=== PATIENT | male | born 1995 | race American Indian/Alaskan Native ===

== ENCOUNTER 2019-09-11 17:06 | Emergency (ER) | payer SELFPAY ==
[2019-09-11 19:36] VITALS: BP 109/49
--- NOTE | 2019-09-11 19:41 | Emergency Department Report ---
Chief Complaint: Urogenital-Male Stated Complaint: PAIN URINING Time Seen by Provider: 09/11/19 19:37 - HPI History of Present Illness: pt states that he has dysuria that began last night +penile discharge no pain or edema in the testicles no n/v/d no fever no abd pain PMhx asthma Vitals are stable Medical screening examination performed and there is no threat to life or limb at this time Patient needs to receive a full STD panel in treatment through the health department or another clinic Patient was given the appropriate resources advised pt to please be seen by the health department or a clinic for a full STD panel. do not engage in sexual activity until you have been tested and treated. please have any partner tested and treated as well. return to the emergency room for any new or worsening symptoms. - Exam Vital Signs: Vital Signs 09/11/19 17:57 Temperature 98.8 F Pulse Rate 55 L Respiratory 18 Rate Blood Pressure 109/49 O2 Sat by Pulse 100 Oximetry MSE screening note: Focused history and physical exam performed. ED Disposition for MSE Clinical Impression: Concern about STD in male without diagnosis Disposition: Z-07 MED SCREENING EXAM-LEFT Is pt being admited?: No Does the pt Need Aspirin: No Condition: Stable Instructions: Sexually Transmitted Diseases (ED), Safe Sex (ED) Additional Instructions: please be seen by the health department or a clinic for a full STD panel. do not engage in sexual activity until you have been tested and treated. please have any partner tested and treated as well. return to the emergency room for any new or worsening symptoms. Referrals: [facility] [Outside] - 2-3 Days JHOANA JAMES MD [Staff Physician] - 2-3 Days [facility] [Outside] - 2-3 Days Time of Disposition: 19:38 Print Language: ROMANIAN
== END 2019-09-11 20:25 | disposition left against medical advice (07) ==
LOC: ED 17:06
DX: R36.9 Urethral discharge, unspecified (principal); J45.909 Unspecified asthma, uncomplicated; Z71.1 Person with feared health complaint in whom no diagnosis is made
CPT/HCPCS: 99281

== ENCOUNTER 2021-10-31 12:44 | Emergency (ER) | payer SELFPAY ==
[2021-10-31] MEDS ORDERED: CYCLOBENZAPRINE 10 MG TAB PO ONE (14:02)
[2021-10-31] MEDS ORDERED: KETOROLAC 10 MG TAB PO ONE (14:02)
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
[2021-10-31 16:36] VITALS: BP 129/82
== END 2021-10-31 16:35 | disposition home or self-care (01) ==
LOC: ED 12:44
DX: M25.511 Pain in right shoulder (principal); M54.50 Low back pain, unspecified; J45.909 Unspecified asthma, uncomplicated; Z79.899 Other long term (current) drug therapy; V87.7XXA Person injured in collision between other specified motor vehicles (traffic), initial encounter; Y93.89 Activity, other specified; Y92.488 Other paved roadways as the place of occurrence of the external cause; Y99.8 Other external cause status
CPT/HCPCS: 72100; 99283